=== PATIENT | female | born 1955 | race African-American/Black ===

== ENCOUNTER 2019-02-14 08:39 | Emergency (ER) | payer OTHER ==
[~2019-02-14] VITALS: Ht 167.6 cm; Wt 77.1 kg
[~2019-02-14 08:39] MED LIST: BENICAR20 MG PO; HYDROCHLOROTH12.5 M1 PO; NORCO 5-325 TA1 EACH PO; POLYMYXIN B/TMP10 ML OPHTHALMIC; TOPROL XL50 MG PO
[2019-02-14 09:08] LABS: URINE BILIRUBIN NEGATIVE (Negative); URINE BLOOD TRACE (Negative); URINE CLARITY CLEAR; URINE COLOR YELLOW; URINE GLUCOSE-RANDOM* NEGATIVE (Negative); URINE KETONES NEGATIVE (Negative); URINE NITRITE-REFLEX NEGATIVE (Negative); URINE PROTEIN (DIPSTICK) NEGATIVE (Negative); URINE UROBILINOGEN 0.2 E.U./dl (0.2-1.0)
[2019-02-14 09:11] LABS: URINE LEUKOCYTES-REFLEX 3+ (Negative)
[2019-02-14 09:20] LABS: CASTS None Seen /LPF (None Seen); SQUAMOUS 4-10 Moderate /LPF (0-3); URINE WBC-REFLEX 6-15 Few /HPF (0-5)
[2019-02-14 09:21] LABS: BACTERIA-REFLEX None Seen /HPF (None Seen); CRYSTALS None Seen /LPF (None Seen); URINE RBC 3-10 Few /HPF (0-2)
[2019-02-14] MEDS ORDERED: KEFLEX500 M1 PO (09:39)
[2019-02-14 10:19] VITALS: BP 143/75
== END 2019-02-14 10:23 | disposition home or self-care (01) ==
LOC: ER 08:39
PROVIDERS: Emergency Medicine
DX: A59.9 Trichomoniasis, unspecified (principal); N39.0 Urinary tract infection, site not specified; I10 Essential (primary) hypertension; Z88.5 Allergy status to narcotic agent; Z98.890 Other specified postprocedural states; Z90.49 Acquired absence of other specified parts of digestive tract

== ENCOUNTER 2019-10-30 12:48 | Emergency (ER) | payer OTHER ==
[~2019-10-30] VITALS: Ht 167.6 cm; Wt 79.4 kg
[~2019-10-30 12:48] MED LIST changes: +KEFLEX500 M1 PO
[2019-10-30 14:01] LABS: URINE BILIRUBIN NEGATIVE (Negative); URINE BLOOD NEGATIVE (Negative); URINE CLARITY CLEAR; URINE COLOR YELLOW; URINE GLUCOSE-RANDOM* NEGATIVE (Negative); URINE KETONES NEGATIVE (Negative); URINE LEUKOCYTES-REFLEX NEGATIVE (Negative); URINE NITRITE-REFLEX NEGATIVE (Negative); URINE PROTEIN (DIPSTICK) NEGATIVE (Negative); URINE UROBILINOGEN 0.2 E.U./dl (0.2-1.0)
[2019-10-30 14:31] LABS: HEMATOCRIT 40.6 % (37.0-47.0); HEMOGLOBIN 13.7 gm/dL (12.0-15.0); MCH 28.3 pg (26.0-34.0); MCHC 33.8 g/dL (28.0-37.0); MCV 83.7 fL (80.0-100.0); RBC 4.84 mil/uL (4.20-5.00); RDW 13.6 % (10.5-14.5); WBC 7.2 thou/uL (4.0-11.0)
[2019-10-30 14:39] LABS: CREATININE 0.8 mg/dL (0.6-1.0); POTASSIUM 4.5 mmol/L (3.5-5.1)
[2019-10-30] MEDS ORDERED: MECLIZINE HCL25 M1 PO (15:00)
[2019-10-30 15:04] VITALS: BP 156/72
[2019-10-30 15:08] LABS: ABSOLUTE NEUTROPHILS 3.2 thou/uL (1.4-8.2); PLATELET COUNT 302 thou/uL (150-400); PLATELET ESTIMATE NORMAL
--- NOTE | 2019-10-31 11:15 | EKG ---
[place] [address] [facility] [place] [address] ELECTROCARDIOGRAM REPORT Name: SALOMÓN BAKER [id number] Admission: 10/30/19 Attend Phys: Discharge: 10/30/19 Date of : 57 Report #: [id number] THIS REPORT FOR: //name// [facility] ED Test Date: 2019-10-30 Test Time: 14:00:58 Pat Name: SALOMÓN BAKER Department: Room: Gender: F Manager Lighting: : 1955 Requested By: John Mcnair Order Number: [id number] MD: Zeus Yeboah Measurements Intervals [place] Rate: 60 P: 38 [place]: 183 QRS: -36 QRSD: 103 T: -4 QT: 431 QTc: 431 Interpretive Statements Sinus rhythm Ventricular premature complex Compared to ECG 06/07/2015 12:33:18 Ventricular premature complex(es) now present Electronically Signed On 10-31-2019 11:15:15 [employer] by Zeus Yeboah [email or web address] <ELECTRONICALLY SIGNED> By: Zeus Yeboah MD 10/31/19 1115 1400 99 Zeus Yeboah MD /TED
== END 2019-10-30 15:04 | disposition home or self-care (01) ==
LOC: ER 12:48
PROVIDERS: Emergency Medicine
DX: R42 Dizziness and giddiness (principal); I10 Essential (primary) hypertension; Z88.5 Allergy status to narcotic agent; Z79.899 Other long term (current) drug therapy; Z98.890 Other specified postprocedural states

== ENCOUNTER 2020-09-29 16:38 | Emergency (ER) | payer OTHER ==
[~2020-09-29] VITALS: Ht 167.6 cm; Wt 77.1 kg
--- NOTE | ~2020-09-29 | EKG ---
[facility] [address] [place] [address] ELECTROCARDIOGRAM REPORT Name: SALOMÓN BAKER Room #: [facility]#: [id number] Admission: 09/29/20 Attend Phys: Discharge: 09/29/20 Date of : 57 Report #: [id number] THIS REPORT FOR: cc: Billy Rashid MD FAA FACEP Billy Rashid MD FAA FACEP Nura Lyman MD ~ THIS REPORT FOR: //name// [facility] ED Test Date: 2020-09-29 Test Time: 18:51:17 Pat Name: SALOMÓN BAKER Department: Room: Gender: F Print Journalist: Roxanne CHÁVEZ : 1955 Requested By: Alexis Fairchild Order Number: [id number] MD: Measurements Intervals [place] Rate: 93 P: 43 [place]: 167 QRS: -35 QRSD: 105 T: -46 QT: 365 QTc: 454 Interpretive Statements Sinus rhythm Abnormal R-wave progression, late transition Inferior infarct, old Lateral leads are also involved Compared to ECG 10/30/2019 14:00:58 Myocardial infarct finding now present Ventricular premature complex(es) no longer present [email or web address] By: [id number] [place] /TED
[~2020-09-29 16:38] MED LIST changes: +MECLIZINE HCL25 M1 PO
[2020-09-29 19:09] LABS: ABSOLUTE NEUTROPHILS 4.2 thou/uL (1.4-8.2); BASOPHILS 0.6 % (0.0-2.0); HEMATOCRIT 41.9 % (37.0-47.0); HEMOGLOBIN 14.3 gm/dL (12.0-15.0); LYMPHOCYTES 24.8 % (24.0-44.0); MCH 28.4 pg (26.0-34.0); MCV 83.6 fL (80.0-100.0); MONOCYTES 8.8 % (1.0-8.0); PLATELET COUNT 224 thou/uL (150-400); POLYS 65.8 % (36.0-66.0); RBC 5.01 mil/uL (4.20-5.00); RDW 13.5 % (10.5-14.5); WBC 6.4 thou/uL (4.0-11.0)
[2020-09-29 19:19] LABS: URINE BLOOD NEGATIVE (Negative); URINE CLARITY CLOUDY; URINE COLOR YELLOW; URINE GLUCOSE-RANDOM* NEGATIVE (Negative); URINE KETONES TRACE (Negative); URINE LEUKOCYTES-REFLEX NEGATIVE (Negative); URINE NITRITE-REFLEX NEGATIVE (Negative); URINE PROTEIN (DIPSTICK) 1+ (Negative); URINE SPECIFIC GRAVITY >= 1.030 (1.005-1.035); URINE UROBILINOGEN 0.2 E.U./dl (0.2-1.0)
[2020-09-29 19:28] LABS: ALBUMIN 3.7 g/dL (3.4-5.0); ANION GAP 14 mmol/L (7-16); BUN 16 mg/dL (7-18); CHLORIDE 96 mmol/L (98-107); CO2 23 mmol/L (21-32); CREATININE 1.5 mg/dL (0.6-1.0); GLUCOSE 156 mg/dL (74-106); LIPASE 80 U/L (73-393); POTASSIUM 3.2 mmol/L (3.5-5.1); SGOT 34 U/L (15-37); SGPT 62 U/L (30-65); SODIUM 133 mmol/L (136-145); TOTAL BILIRUBIN 0.4 mg/dL (0.2-1.0); TOTAL PROTEIN 8.1 g/dL (6.4-8.2); TROPONIN-I <0.06 ng/mL (<0.06)
[2020-09-29 19:31] LABS: ICTOTEST (BILI CONFIRMATORY) Negative (Negative); URINE BILIRUBIN NEGATIVE (Negative)
[2020-09-29 19:37] LABS: CALCIUM 9.1 mg/dL (8.5-10.1)
[2020-09-29 19:50] LABS: BACTERIA-REFLEX 1-9 Few /HPF (None Seen); CASTS None Seen /LPF (None Seen); SQUAMOUS >10 Many /LPF (0-3); URINE WBC-REFLEX 0-5 Rare /HPF (0-5)
[2020-09-29 19:51] LABS: AMORPHOUS URATES Moderate /LPF (None Seen); URINE RBC None Seen /HPF (0-2)
[2020-09-29] MEDS ORDERED: PRILOSEC OTC20 MG PO (20:02)
[2020-09-29] MEDS ORDERED: ONDANSETRON ODT8 MG PO (20:02)
[2020-09-29 20:17] VITALS: BP 117/80
== END 2020-09-29 21:26 | disposition home or self-care (01) ==
LOC: ER 16:38
PROVIDERS: Emergency Medicine
DX: K27.9 Peptic ulcer, site unspecified, unspecified as acute or chronic, without hemorrhage or perforation (principal); R11.0 Nausea; R19.7 Diarrhea, unspecified; E87.6 Hypokalemia; R79.89 Other specified abnormal findings of blood chemistry; I10 Essential (primary) hypertension; Z79.899 Other long term (current) drug therapy; Z88.5 Allergy status to narcotic agent